=== PATIENT | female | born 1960 | race Caucasian/White ===

== ENCOUNTER → 2017-05-05 | Outpatient (CLI) | payer BC, OTHER, SELFPAY ==
--- NOTE | 2017-05-05 14:10 | REP ---
Pelvic ultrasound including transabdominal, endovaginal and Doppler ultrasound assessment: The patient indicates she was on tamoxifen therapy for 5 years but discontinued tamoxifen in July. Comparison study is 2010. The bladder is adequately distended. The uterus is retroverted and retroflexed and upper normal size measuring 9.6 by 4.7 x 5.7 cm. The endometrium is mildly thickened for a postmenopausal female measuring 6.2 mm (9 mm previously). However, the study today there is a focal echogenic nodule in the subendometrial zone measuring 1.1 x 1.2 x 1 of 4 cm of uncertain significance, endometrial nodule versus uterine fibroid. On the prior study there was a new right uterine body fibroid and measured 1.3 x 1.6 x 1.8 cm. A subendometrial fibroid is again identified on the right today measuring 1.0 x 1.3 x 1.5 cm. There is a right ovarian follicle measuring 1.6 x 2.0 x 1.4 cm. Including this follicle the right ovary is normal size 2.6 x 1.5 x 2.5 cm. There is vascular flow in the right ovary with the Doppler resistive index of intraparenchymal arteries measuring 0.43. On the left ovary is not identified, however, there is a mass-like structure in the left adnexa measuring 2.1 x 2.5 x 3.2 cm with posterior shadowing suggesting there may be be a calcification within this mass. Impression: The left ovary is never visualized, however, there is a mass-like structure in the left adnexa. Pelvic MRI might be considered for further evaluation. There is a subendometrial fibroid on the right. There is a second subendometrial fibroid versus endometrial nodule on the right as discussed in the body of the report. Pelvic MRI could further evaluate these findings. There is a right ovarian follicle as described. The uterus is retroverted and retroflexed. Signed by Price Pablo MD 05/05/2017 02:02 P
== END ==
LOC: M RAD 11:41
PROVIDERS: ATTEND Nurse Practitioner Women's Health
DX: N95.0 Postmenopausal bleeding (principal)

== ENCOUNTER → 2017-05-10 | Outpatient (REF) | payer SELFPAY | LOC: M SFHCWAGY 11:42 | PROVIDERS: ATTEND Nurse Practitioner Women's Health | DX: N95.0 Postmenopausal bleeding (principal); N94.9 Unspecified condition associated with female genital organs and menstrual cycle ==

== ENCOUNTER → 2017-05-12 | Outpatient (CLI) | payer BC, OTHER ==
--- NOTE | 2017-05-12 20:39 | REP ---
MRI PELVIS WITHOUT WITH CONTRAST: 05/12/2017. Clinical history: Postmenopausal bleeding. Abnormal ultrasound. Further evaluation requested. Technique: Sagittal gradient echo localizer images with T1 whole pelvic axial images, T2 axial, fat suppressed T2 sagittal, T2 coronal with T1 fat suppressed axial, fat suppressed T1 axial and coronal post gadolinium sequences provided. Comparison: Pelvic ultrasound 05/05/2017. Findings: On the T2 and T1 images, evidence for a left ovary and adnexa are noted adjacent to the left uterine body on this retroverted uterus. The ovary measures 3.1 x 1.9 x 1.7 cm. There is a dominant follicle within it, about 17 mm size. The right ovary is more difficult to evaluate, which was lateral to the uterus in a parametrial location. No definite mass. Uterus is somewhat globular in its appearance of the fundus. There is heterogeneous myometrium. The posterior myometrium shows a submucosal fibroid, which is hypointense on T2 images and indents the endometrial cavity. There is an indentation of the endometrial cavity and the anterior side of the cavity does not appear to have a submucosal fibroid associated with it and I would be concerned about possible endometrial lesion. It is about 11 mm long by 3.5 mm thick. Small Nabothian cyst in the cervix. Heterogeneity throughout the uterus is noted. Gadolinium enhancement of the uterus is heterogeneous with subserosal fibroids also noted and scattered myometrial small fibroid seen throughout. Trace fluid in the cul-de-sac is noted. Bladder partially filled. I do not see other significant finding. Impression: 1. Posteriorly, there is a submucosal fibroid indenting the endometrial cavity and anteriorly there is thickening or irregular elevation of the endometrium in the body of the uterus 11 mm long by 3.5 mm thick. There is some fluid in the endometrial cavity, which has an overall thickness of 9 mm. Submucosal and subserosal fibroids are present. 2. Dominant follicle left ovary up to 1.7 cm, no mass. Right ovary more difficult to find on today's MRI but grossly unremarkable. In a patient with postmenopausal bleeding and these findings on MRI in the endometrial cavity, endometrial neoplasm is not excluded. Signed by Geo So MD 05/12/2017 10:34 P
== END ==
LOC: M RAD 11:13
PROVIDERS: ATTEND Nurse Practitioner Women's Health
DX: N95.0 Postmenopausal bleeding (principal)

== ENCOUNTER → 2017-06-07 | Outpatient (CLI) | payer OTHER ==
[~2017-06-07] MED LIST: MISO200T56 PO
--- NOTE | 2017-06-07 10:39 | REPMRS ---
Patient History The patient states she had a clinical breast exam in May 2017. Patient has history of cancer in the left breast at age 50. Family history of breast cancer in 2 maternal cousins under age 50. Malignant excisional biopsy of the left breast, March 30, 2011. Radiation therapy of the left breast, 2010. Taking tamoxifen for 4 years. Digital Mammo Diagnostic Bilateral: June 07, 2017 - Exam #: [id number] Bilateral CC and MLO view(s) were taken. Technologist: Jessi Monge, Technologist Prior study comparison: June 06, 2016, bilateral digital mammo screening bilat performed at [facility]. June 04, 2015, digital woman screen mammo, performed at [facility]. June 03, 2014, digital woman screen mammo, performed at [facility]. FINDINGS: There are scattered fibroglandular densities. There has been no change in the appearance of the mammogram from the prior studies. There is a mild amount of scattered fibroglandular density which is fairly symmetric. There is no interval development of dominant mass, architectural distortion, or clustered microcalcification suggestive of malignancy. ASSESSMENT: BI-RADS/ACR category 1 mammogram. Negative. Recommendation Routine screening mammogram in 1 year (for women over age 40). This mammogram was interpreted with the aid of an FDA-approved computer-aided dectection system. Electronically Signed By: Rico Cuenca MD 06/07/17 [id number]
== END ==
LOC: M RAD 08:45
PROVIDERS: ATTEND Internal Medicine Medical Oncology
DX: Z85.3 Personal history of malignant neoplasm of breast (principal)

== ENCOUNTER 2017-09-04 07:27 | Day surgery (SDC) | payer OTHER ==
--- NOTE | 2017-09-01 20:27 | CR ---
DATE OF CONSULTATION: 08/21/2017 PREOPERATIVE EVALUATION AND CONSULTATION REQUESTING PHYSICIAN: Dr. Kincaid. CONSULTING PHYSICIAN: Dr. Duarte. REASON FOR SURGERY: Postmenopausal bleeding. PLANNED SURGERY: For 09/04/2017, at [facility], planned dilation and curettage, hysteroscopy. HISTORY OF PRESENT ILLNESS: This is a very pleasant 57-year-old patient of mine who presents today for preoperative evaluation and consultation. The patient is quite active. She has no cardiac history. She denies any chest pain with exertion or significant shortness of breath. Electrocardiogram (EKG) completed today showed normal sinus rhythm without significant abnormalities. The patient has never smoked and she denies any respiratory problems. No significant issues with anesthesia in the past. She denies snoring. Otherwise, the patient does have a history of breast cancer for which she had a lumpectomy and radiation in 2010. Otherwise, she has some right ear hearing loss with status post full workup with Dr. Fitzgerald. Does wear a hearing aid in the right ear. She is going under evaluation for some postmenopausal bleeding; however, the patient was on tamoxifen for some time due to her breast cancer. She is a 4, para 4, with no significant complications of her pregnancies. PAST SURGICAL HISTORY: 1. She had section times three. She is a 4, para 4. All sections at [facility]. 2. She had a lumpectomy with Dr. Diaz in 2010, for breast cancer. Again, this was followed by radiation. 3. She had a nasal biopsy completed by Dr. Fitzgerald in 2004. 4. A colonoscopy was completed by Dr. Rose 04/01/2013, and was normal. ALLERGIES: No known drug allergies. MEDICATIONS: No medications at this point in time, no prescribed or [id number]. FAMILY HISTORY: Father of industrial accident at age 45. Her mother is healthy at 78 years old. Lives in [place]. No other concerns. She does have four children. One has Crohn's disease and two with Dhillon's syndrome. SOCIAL HISTORY: The patient is to her David. 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 They have four children in their 30s. One is local. They have four granddaughters locally. She does exercise regularly, both weights and cardiovascular. She has never smoked. She rarely uses alcohol. REVIEW OF SYSTEMS: Completely negative times ten. OBJECTIVE: VITAL SIGNS: Blood pressure 128/74, pulse 62, weight 143 pounds. Height is 5 feet 3 inches. GENERAL: She appears well, no acute distress, nontoxic, alert and oriented times three. She is smiling, interactive. HEENT: Pupils equal, round, and reactive to light and accommodation. Extraocular motion intact. No lesions of the lids or conjunctivae. Head is atraumatic, normocephalic. Oral cavity, oropharynx benign as are external ears. She does have a hearing aid in the right ear. NECK: Neck is supple. No lymphadenopathy or thyromegaly. HEART: Regular rate and rhythm, S1, S2. No murmurs. LUNGS: Clear to auscultation bilaterally. No rales, rhonchi or wheezes. ABDOMEN: Soft, nontender, nondistended. EXTREMITIES: No clubbing, cyanosis or edema. LABORATORY DATA: Preoperative labs were completed and showed a normal CBC and BMP. EKG showed normal sinus rhythm. No other abnormalities. No recent comparison. ASSESSMENT AND PLAN: 1. Preoperative evaluation and consultation. At this point in time, the patient is optimized for surgery. She is quite healthy without significant cardiac risks , and I expect she will do well. If you have any concerns or questions, please call me anytime at [phone]. 2. Postmenopausal bleeding: At this point in time it is likely due to her medication after breast cancer, but she is otherwise doing quite well and understands the need for appropriate workup and has appropriate expectations for the procedure. 3. History of malignancy neoplasm of the breast: The patient has been following up without any issues or concerns. Will continue appropriate followup. Understands the risks after lumpectomy and radiation. 4. Hearing loss to the right ear: The patient wears a hearing aid. This is important to note for any communication with the patient perioperatively. 5. Ongoing care: Again, I expect the patient will do well perioperatively. There is no specific risk. She should have standard appropriate monitoring. If there are new concerns or questions, please let me know; otherwise, I will see her for scheduled visit. SAEED
[~2017-09-04] VITALS: Ht 160 cm; Wt 64.5 kg
[2017-09-04] MEDS ORDERED: LR 1,000 ML IV ONE (07:45)
[2017-09-04] MEDS ORDERED: TYLE325C PO (08:04)
[2017-09-04 08:13] LABS: MEAN CORPUSCULAR HEMOGLOBIN 32.1 pg (27.0-33.0); MEAN CORPUSCULAR HGB CONC 33.7 g/dl (32.0-36.5); MEAN CORPUSCULAR VOLUME 95.2 fl (80.0-96.0); PLATELET COUNT, AUTOMATED 171 10^3/uL (150-450); RED CELL DISTRIBUTION WIDTH 12.6 % (11.5-14.5); WHITE BLOOD COUNT 5.7 10^3/uL (4.0-10.0)
[2017-09-04] MEDS ORDERED: KETOROLAC 60 MG/2 ML VIAL (J1885) As Ordered ONE (09:16)
[2017-09-04] MEDS ORDERED: ONDANSETRON 4MG/2ML VIAL (J2405) As Ordered ONE (09:16)
[2017-09-04] MEDS ORDERED: fentaNYL 100 MCG/2 ML INJECTION (J3010) As Ordered ONE (09:16)
[2017-09-04] MEDS ORDERED: LIDOCAINE 2% INJ 100 MG/5 ML SDV (FOR ANES.) As Ordered ONE (09:16)
[2017-09-04] MEDS ORDERED: dexameTHASONE 4 MG/ML 1ML VIAL (J1100) As Ordered ONE (09:16)
[2017-09-04] MEDS ORDERED: PROPOFOL 200 MG/20 ML VIAL As Ordered ONE (09:16)
[2017-09-04] MEDS ORDERED: MIDAZOLAM INJ 2 MG/2 ML VIAL (J2250) As Ordered ONE (09:16)
--- NOTE | 2017-09-04 10:11 | RO ---
DATE OF PROCEDURE: 09/04/2017 PREPROCEDURE DIAGNOSIS: Postmenopausal bleeding. POSTPROCEDURE DIAGNOSES: 1. Postmenopausal bleeding. 2. Endometrial polyp. PROCEDURE: Hysteroscopy, dilation and curettage with MyoSure. SURGEON: Dr. Maki Kincaid. SHAFT TENDER: None. ANESTHESIA: General endotracheal anesthesia. ESTIMATED BLOOD LOSS: 5 mL. INTRAVENOUS FLUID: 800 mL of lactated Ringers solution URINE: Not obtained. SPECIMEN: 1. Endometrial polyp. 2. Endometrial curettings. OPERATIVE FINDINGS: The patient's sounded to 9 cm. Bilateral ostia were visualized. Atrophic appearing endometrium. There was approximately a 2.5 cm anterior endometrial polyp. DESCRIPTION OF PROCEDURE: After informed consent was obtained and written consent was reviewed. The patient was brought to the operating room where general endotracheal anesthesia was obtained. She was then placed in lithotomy position and was prepped and draped in the normal sterile fashion. A time-out on the operating room was then performed identifying the patient, procedure to be performed as well as drug allergies. A bivalve speculum was then placed revealing the cervix. The anterior lip of the cervix was grasped with a single tooth tenaculum. A uterine sound was then inserted through the cervical os and the uterus was sounded to approximately 9 cm. The cervix was then sequentially dilated using hanks dilators. The hysteroscope was then advanced through the cervical os and into the endometrium. The cavity was inspected and with the above noted findings. The MyoSure was then advanced into the hysteroscope and the anterior polyp was then morcellated down to the base. The hysteroscope and the MyoSure was then removed. A sharp curet was then advanced into the cervical os and the uterus was curetted in a 360 degree fashion with good amount of tissue obtained. A specimen was also collected. Both specimens were sent separately to pathology for further evaluation. The tenaculum was then removed. Tenaculum sites were noted to be hemostatic. The speculum was then removed. The patient was then taken out of the lithotomy position and was awakened from general anesthesia and taken to the recovery room in stable condition. Counts were correct.
[2017-09-04] MEDS ORDERED: MEPERIDINE INJ 25 MG/ML VIAL (J2175) As Ordered ONE (10:24)
[2017-09-04] MEDS ORDERED: fentaNYL 100 MCG/2 ML INJECTION (J3010) IV PRN (10:45)
[2017-09-04] MEDS ORDERED: PERCOCET 5MG/325MG TAB PO PRN (10:45)
[2017-09-04] MEDS ORDERED: ONDANSETRON 4MG/2ML VIAL (J2405) IV PRN (10:45)
[2017-09-04] MEDS ORDERED: LR 1,000 ML IV SCH (10:45)
[2017-09-04] MEDS ORDERED: MEPERIDINE INJ 25 MG/ML VIAL (J2175) IV PRN (10:45)
[2017-09-04 12:56] VITALS: BP 96/54
== END 2017-09-04 13:10 | disposition home or self-care (01) ==
LOC: M SDC 07:27
PROVIDERS: ATTEND Obstetrics & Gynecology
DX: N95.0 Postmenopausal bleeding (principal); N84.0 Polyp of corpus uteri; Z85.3 Personal history of malignant neoplasm of breast; Z92.3 Personal history of irradiation; Z78.0 Asymptomatic menopausal state
CPT/HCPCS: 36415; 58558; 85027; 86850; 88305; J1100; J1885; J2175; J2250; J2405; J3010

== ENCOUNTER → 2019-08-08 | Outpatient (REF) | payer SELFPAY ==
[~2019-08-08] MED LIST changes: +TYLE325C PO
[2019-08-10 15:06] LABS: HPV HYBRID CAPTURE II Negative (Negative)
== END ==
LOC: M SFHCWAGY 14:52
PROVIDERS: ATTEND Nurse Practitioner Women's Health
DX: Z12.4 Encounter for screening for malignant neoplasm of cervix (principal)

== ENCOUNTER → 2021-03-26 | Outpatient (CLI) | payer OTHER ==
--- NOTE | 2021-03-27 16:47 | REP ---
INDICATION: PAIN COMPARISON: None. TECHNIQUE: Internal rotation, external rotation, and Y view. FINDINGS: No acute fracture or dislocation. The acromioclavicular and glenohumeral joints are intact. No periarticular calcifications or overt degenerative changes are appreciated. Sub acromial space is normal. Surrounding soft tissues are unremarkable. Evidence for prior axillary node dissection IMPRESSION: Normal age-appropriate left shoulder radiographs. <Electronically signed by Oscar Noriega > 03/27/21 [id number]
== END ==
LOC: M WUC 15:29
PROVIDERS: ATTEND Physician Assistant Medical
DX: M25.512 Pain in left shoulder (principal)

== ENCOUNTER → 2021-08-19 | Outpatient (REF) | payer OTHER | LOC: M SFHCWAGY 18:55 | PROVIDERS: ATTEND Nurse Practitioner Women's Health | DX: Z12.4 Encounter for screening for malignant neoplasm of cervix (principal) | CPT/HCPCS: 87624; G0123 ==

== ENCOUNTER → 2022-08-25 | Outpatient (CLI) | payer OTHER | LOC: M WHC 14:02 | PROVIDERS: ATTEND Family Medicine | DX: Z12.31 Encounter for screening mammogram for malignant neoplasm of breast (principal) ==

== ENCOUNTER → 2022-09-16 | Outpatient (REF) | payer OTHER | LOC: M PLALAB 10:00 | PROVIDERS: ATTEND Obstetrics & Gynecology | DX: Z01.419 Encounter for gynecological examination (general) (routine) without abnormal findings (principal) | CPT/HCPCS: 87624; G0123 ==

== ENCOUNTER → 2023-06-27 | Outpatient (CLI) | payer OTHER ==
[~2023-06-27] MED LIST changes: +E-Z-GAS II EFFERVESCENT PACKET (SODIUM BICARB./CITRIC ACID/SIMETHICONE) As Ordered ONE; +E-Z-HD 98% w/w 340GM SUSP BTL As Ordered ONE; +E-Z-PAQUE 96% w/w SUSP 176GM BTL As Ordered ONE; -MISO200T56 PO; +MISO200T83 PO
== END ==
LOC: M RAD 09:38
PROVIDERS: ATTEND Family Medicine
DX: R13.10 Dysphagia, unspecified (principal)

== ENCOUNTER → 2023-07-26 | Outpatient (REF) | payer OTHER ==
[~2023-07-26] MED LIST changes: -E-Z-GAS II EFFERVESCENT PACKET (SODIUM BICARB./CITRIC ACID/SIMETHICONE) As Ordered ONE; -E-Z-HD 98% w/w 340GM SUSP BTL As Ordered ONE; -E-Z-PAQUE 96% w/w SUSP 176GM BTL As Ordered ONE
== END ==
LOC: M LAB REF 12:58
PROVIDERS: ATTEND Plastic Surgery Surgery of the Hand
DX: C44.329 Squamous cell carcinoma of skin of other parts of face (principal)

== ENCOUNTER → 2023-08-03 | Outpatient (CLI) | payer OTHER ==
[~2023-08-03] MED LIST changes: +XIID5DRO OU
== END ==
LOC: M WUC 09:37
PROVIDERS: ATTEND Physician Assistant
DX: C44.329 Squamous cell carcinoma of skin of other parts of face (principal); D22.39 Melanocytic nevi of other parts of face

== ENCOUNTER 2023-08-15 07:05 | Day surgery (SDC) | payer OTHER ==
[~2023-08-15] VITALS: Ht 157.5 cm; Wt 65.7 kg
[~2023-08-15 07:05] MED LIST changes: +ceFAZolin SOD 2 GM in IV 1 EA IV ONE
[2023-08-15] MEDS ORDERED: LIDOCAINE 2% 100MG/5ML SDV (FOR ANES.) As Ordered ONE (07:53)
[2023-08-15] MEDS ORDERED: ONDANSETRON 4MG 2ML VIAL As Ordered ONE (07:53)
[2023-08-15] MEDS ORDERED: propofoL 200 MG/20 ML VIAL As Ordered ONE ×2 (07:53→08:05)
[2023-08-15] MEDS ORDERED: LR 1,000 ML IV SCH (07:55)
[2023-08-15] MEDS ORDERED: BACITRACIN OINTMENT 30GM TUBE As Ordered ONE (07:58)
[2023-08-15] MEDS ORDERED: LIDOCAINE W/EPINEPHRINE 1% 20ML VIAL As Ordered ONE (07:58)
[2023-08-15] MEDS ORDERED: fentaNYL 100 MCG/2 ML INJECTION As Ordered ONE (08:01)
[2023-08-15] MEDS ORDERED: MIDAZOLAM INJ 2MG/2ML VIAL As Ordered ONE (08:02)
[2023-08-15] MEDS ORDERED: ACETAMINOPHEN 1000MG 100ML IV BAG As Ordered ONE ×2 (09:04→11:28)
[2023-08-15] MEDS ORDERED: LIDOCAINE 2% W/EPINEPHRINE 20ML VIAL **PRES FREE As Ordered ONE (09:12)
[2023-08-15 11:08] VITALS: BP 102/53; TEMP 98; O2SAT 94
== END 2023-08-15 11:20 | disposition home or self-care (01) ==
LOC: M SDC 07:05
PROVIDERS: ATTEND Plastic Surgery Surgery of the Hand
DX: L90.5 Scar conditions and fibrosis of skin (principal); L57.8 Other skin changes due to chronic exposure to nonionizing radiation
CPT/HCPCS: 11642; 12051; 88305; J0131; J1100; J2250; J2405; J3010

== ENCOUNTER → 2023-09-20 | Outpatient (CLI) | payer OTHER ==
[~2023-09-20] MED LIST changes: +BARIUM SULFATE 700 MG TABLET (E-Z-DISK) As Ordered ONE; +E-Z-PAQUE 96% w/w SUSP 176GM BTL As Ordered ONE; +VARIBAR NECTAR 40% w/v 240ML SUSP BTL As Ordered ONE; +VARIBAR PUDDING 40% w/v 230ML TUBE As Ordered ONE; -ceFAZolin SOD 2 GM in IV 1 EA IV ONE
== END ==
LOC: M RAD 13:26
PROVIDERS: ATTEND Internal Medicine
DX: R13.10 Dysphagia, unspecified (principal)

== ENCOUNTER → 2023-11-02 | Outpatient (CLI) | payer OTHER ==
[~2023-11-02] MED LIST changes: -BARIUM SULFATE 700 MG TABLET (E-Z-DISK) As Ordered ONE; -E-Z-PAQUE 96% w/w SUSP 176GM BTL As Ordered ONE; -VARIBAR NECTAR 40% w/v 240ML SUSP BTL As Ordered ONE; -VARIBAR PUDDING 40% w/v 230ML TUBE As Ordered ONE
== END ==
LOC: M WHC 07:57
PROVIDERS: ATTEND Obstetrics & Gynecology
DX: Z12.31 Encounter for screening mammogram for malignant neoplasm of breast (principal); Z85.3 Personal history of malignant neoplasm of breast; R92.323 Mammographic fibroglandular density, bilateral breasts

== ENCOUNTER → 2023-11-02 | Outpatient (REF) | payer OTHER | LOC: M SFHCWAGY 13:23 | PROVIDERS: ATTEND Obstetrics & Gynecology | DX: Z01.419 Encounter for gynecological examination (general) (routine) without abnormal findings (principal) | CPT/HCPCS: 87624; G0123 ==

== ENCOUNTER 2024-02-26 07:32 | Day surgery (SDC) | payer OTHER ==
[~2024-02-26] VITALS: Ht 157.5 cm; Wt 64.1 kg
[2024-02-26] MEDS: NS 1,000 ML IV ONE (07:55)
[2024-02-26] MEDS ORDERED: LIDOCAINE 2% 100MG/5ML SDV (FOR ANES.) As Ordered ONE (08:30)
[2024-02-26] MEDS ORDERED: propofoL 200 MG/20 ML VIAL As Ordered ONE (08:30)
[2024-02-26] MEDS ORDERED: fentaNYL 100 MCG/2 ML INJECTION As Ordered ONE (08:31)
[2024-02-26 09:10] VITALS: TEMP 97.3
[2024-02-26 09:29] VITALS: BP 120/57; O2SAT 99
== END 2024-02-26 09:30 | disposition home or self-care (01) ==
LOC: M OPP 07:32
PROVIDERS: ATTEND Internal Medicine Gastroenterology
DX: Z12.11 Encounter for screening for malignant neoplasm of colon (principal); Z12.12 Encounter for screening for malignant neoplasm of rectum; K64.0 First degree hemorrhoids; Z85.3 Personal history of malignant neoplasm of breast; Z92.21 Personal history of antineoplastic chemotherapy; Z92.3 Personal history of irradiation; Z79.899 Other long term (current) drug therapy
CPT/HCPCS: 43235; 45378; J3010

== ENCOUNTER → 2024-11-06 | Outpatient (CLI) | payer OTHER | LOC: M WHC 14:54 | PROVIDERS: ATTEND Obstetrics & Gynecology | DX: Z12.31 Encounter for screening mammogram for malignant neoplasm of breast (principal) ==

== ENCOUNTER → 2024-11-06 | Outpatient (REF) | payer OTHER ==
[2024-11-09 16:36] LABS: HPV APTIMA Not Detected (Not Detected)
== END ==
LOC: M SFHCWAGY 10:31
PROVIDERS: ATTEND Obstetrics & Gynecology
DX: Z12.4 Encounter for screening for malignant neoplasm of cervix (principal); R87.610 Atypical squamous cells of undetermined significance on cytologic smear of cervix (ASC-US); N95.2 Postmenopausal atrophic vaginitis
CPT/HCPCS: 87624; G0123

== ENCOUNTER → 2025-06-04 | Outpatient (REF) | payer OTHER ==
[~2025-06-04] MED LIST changes: +LIFI1DRO4 OU; -XIID5DRO OU
[2025-06-04 20:36] LABS: STABLE ALKPHOS 44.0 U/L
[2025-06-04 20:38] LABS: % LABILE ALKALINE PHOSPHATASE 66.7 %; LABILE ALKPHOS 88.0 U/L
== END ==
LOC: M LAB REF 17:48
PROVIDERS: ATTEND Family Medicine
DX: R74.8 Abnormal levels of other serum enzymes (principal)